=== PATIENT | female | born 1960 | race Caucasian/White ===

== ENCOUNTER 2016-10-09 16:17 | Emergency (ER) | payer MEDICARE, OTHER ==
[~2016-10-09] VITALS: Ht 162.6 cm; Wt 100.0 kg
[2016-10-09 16:19] VITALS: BP 189/75; PULSE 72; RESP 17; TEMP 98.1; O2SAT 95
[2016-10-09] MEDS ORDERED: ASPI81TA81 PO (16:58)
[2016-10-09] MEDS ORDERED: ALBU0.08 NEB ×2 (16:58→17:10)
[2016-10-09] MEDS ORDERED: ENAL10TA PO ×2 (16:58→17:47)
[2016-10-09] MEDS ORDERED: PRED20 PO (17:10)
[2016-10-09] MEDS ORDERED: AZIT250T3 PO (17:10)
[2016-10-09] MEDS ORDERED: predniSONE 20 MG TAB PO ONE (17:15)
--- NOTE | 2016-10-09 17:26 | PD ---
HPI Chief Complaint: Respiratory Distress Time Seen by Provider: 17:22 Travel History International Travel<30 days: No Contact w/Intl Traveler<30days: No Traveled to known affect area: No History of Present Illness HPI 56-year-old female that presents to the ED for evaluation of asthma tach. Per patient she has had asthma her whole life. Per patient this feels similar. Per patient's symptoms started yesterday. Per patient she is visiting here from [place] visiting family and she did not bring her medications. Per patient she does have a nebulizer at home and this is what she usually uses. She denies any fevers chills or sweats. Per patient and shortness of breath causes a lot of cough. Per patient she feels like she is wheezing. She denies ever having to be intubated. She denies any chest pain. No abdominal pain. Nausea or vomiting. No numbness, tilling, weakness. No allergies to medication. She [place] PCP in the states. PFSH Past Medical History Asthma: Yes Social History Alcohol Use: No Tobacco Use: No Substance Use: No Allergies-Medications (Allergen,Severity, Reaction): Coded Allergies: No Known Allergies (Unverified , 10/09/16) Reported Meds & Prescriptions Reported Meds & Active Scripts Active Azithromycin 250 Mg Tab 250 Mg PO DIRECTED Take 2 tabs (500 mg) on day 1 then 1 tab daily x 4 days. Prednisone 20 Mg Tab 20 Mg PO BID Albuterol Neb (Albuterol Sulfate) 2.5 Mg/3 Ml Neb 2.5 Mg NEB Q4HR PRN Reported Aspir-81 (Aspirin) 81 Mg Tabdr 81 Mg PO DAILY Enalapril (Enalapril Maleate) 10 Mg Tab 10 Mg PO BID Review of Systems Except as stated in HPI: all other systems reviewed are Neg Physical Exam Narrative GENERAL: Well-nourished, well-developed patient in no apparent distress. SKIN: Warm and dry. HEAD: Atraumatic. Normocephalic. EYES: Pupils equal and round reactive to light and accommodation. No scleral icterus. No injection or drainage. ENT: No nasal bleeding or discharge. Mucous membranes pink and moist. TMs are clear with no sign of infection or perforation. No mastoid tenderness. Ear canals are intact bilaterally. No lymphadenopathy. Nostril mucosa is red and moist with clear mucus noted. No sinus tenderness to palpation noted. Tonsils are not enlarged or swollen. No ulvua Deviation. Tongue is midline. NECK: Trachea midline. No JVD. No meningeal signs noted CARDIOVASCULAR: Regular rate and rhythm. RESPIRATORY: No accessory muscle use. Wheezings heard in all lung poole. Breath sounds equal bilaterally. Data Data Last Documented VS Vital Signs Date Time Temp Pulse Resp B/P Pulse Ox O2 Delivery O2 Flow Rate FiO2 10/09/16 16:19 98.1 72 17 189/75 95 Orders Prednisone (Deltasone) (10/09/16 17:15) Albuterol Neb (Albuterol Neb) (10/09/16 17:15) [facility] Medical Decision Making Medical Screen Exam Complete: Yes Emergency Medical Condition: Yes Medical Record Reviewed: Yes Differential Diagnosis Asthma exacerbation versus acute asthma versus bronchitis Narrative Course 56-year-old female that presents to the ED for evaluation of asthma. Patient was properly examined and was found to have signs and symptoms consistent appears to be asthma exacerbation. Patient was given breathing treatments as well as prednisone. Patient was reassessed and feels improved. Patient will be sent home with prescriptions for prednisone, albuterol, azithromycin. Told to follow with PCP. See ED worsening symptoms. Diagnosis Primary Impression: Asthma exacerbation Patient Instructions: General Instructions Additional Instructions: Take medications as prescribed. Follow-up with PCP. See ED worsening symptoms. Med/Other Pt SpecificInfo: Prescription(s) given Scripts Azithromycin 250 Mg Ult492 Mg PO DIRECTED #6 TAB Take 2 tabs (500 mg) on day 1 then 1 tab daily x 4 days. Prov:Julien Us MD 10/09/16 Prednisone 20 Mg Tab20 Mg PO BID #10 TAB Prov:Julien Us MD 10/09/16 Albuterol Neb 2.5 Mg/3 Ml Neb2.5 Mg NEB Q4HR PRN (SOB/WHEEZING) #1 NEBULE Ref 0 Prov:Julien Us MD 10/09/16 Disposition: 01 DISCHARGE HOME Condition: Raghu May Oct 09, 2016 17:26
[2016-10-09] MEDS: RESP: ALBUTEROL 2.5 MG/3 ML NEB (SCH) INH (17:27)
== END 2016-10-09 18:13 | disposition home or self-care (01) ==
LOC: NEPB 16:17
DX: J45.901 Unspecified asthma with (acute) exacerbation (principal)
CPT/HCPCS: 94640; 94664; 99284; J7512; J7613